=== PATIENT | male | born 1950 | race Asian ===

== ENCOUNTER 2024-01-01 02:11 | Emergency (ER) | payer MEDICARE, OTHER, SELFPAY ==
[2024-01-01 02:13] VITALS: BP 165/82
[2024-01-01 02:16] LABS: Glucose - Point of Care 135 mg/dl (70-99)
[2024-01-01 02:53] LABS: % Eosinophils 9.6 % (0-6); % Immature Granulocytes 0.5 % (0-0.5); % Lymphocytes 19.2 % (20.5-51.1); % Monocytes 11.8 % (1.7-9.3); % Neutrophils 57.9 % (42.2-75.2); Absolute Basophils 0.1 10^3/uL (0-0.2); Absolute Eosinophils 0.8 10^3/uL (0-0.7); Absolute Lymphocytes 1.5 10^3/uL (1.2-3.4); Absolute Monocytes 0.9 10^3/uL (0.1-0.6); Absolute Neutrophils 4.6 10^3/uL (1.4-6.5); Hematocrit 33.8 % (39.0-52.0); Mean Corp Hgb Conc. 35.5 g/dL (33.0-37.0); Mean Corpuscular Hgb 30.2 pg (27.0-31.0); Mean Corpuscular Volume 85.1 fL (80.0-94.0); Nucleated Red Blood Cells % 0 % (-); Red Blood Cell Count 3.97 10^6/uL (4.70-6.10); Red Cell Dist. Width 15.6 % (11.5-14.5)
[2024-01-01 03:32] VITALS: BMI 23.8
--- NOTE | 2024-01-01 03:56 | ED.GENMED ---
Addendum entered and electronically signed by Leonard Mckenzie DO 01/01/24 05:51:
Patient now remembers that he ran out of his Valium greater than 24 hours ago 2 mg which she takes at night
Requested a refill
Original Note:
History of Present Illness
General
Chief Complaint: Weakness
Source: patient
Exam Limitations: none
Time Seen by Provider: 01/01/24 03:49
Nursing documentation reviewed up to this point in time: agreed with
Travel History
Have you had any contact with someone who has COVID-19?: No
Do you have any symptoms of coronavirus? Fever > 100 degrees, chills, cough, shortness of breath, sore throat, loss of taste or smell, muscle aches, or headache?: No
History of Present Illness
History of Present Illness:
73-year-old male hypertension diabetes on metformin CAD with stents presents with a feeling of uneasiness around 11 AM, took his blood sugar was 92, drank some apple juice now feeling better no fever no nausea or vomiting no chest pain no shortness
of breath no abdominal pain he takes sodium supplements and potassium supplements he had a hip replacement
Past History
Past History
ED Past Medical History: CAD, HTN and NIDDM
ED Past Surgical History: Orthopedic
Social History
Tobacco: Non-smoker
Alcohol: None
Drug: None
Living: with family
Employment: Retired
Review of Systems
Review of Systems
All Other Systems: Not applicable
Constitutional: Reports fatigue
EENT: Reports no symptoms
Respiratory: Reports no symptoms
Cardiac: Reports no symptoms
ABD/GI: Reports no symptoms
: Reports no symptoms
Musculoskeletal: Reports no symptoms
Skin: Reports no symptoms
Neurological: Reports weakness
Endocrine: Reports no symptoms
Hematologic/Lymphatic: Reports no symptoms
Phy Exam
Physical Exam
Physical Exam:
Physical Exam
General: no apparent distress, not acutely ill
Neck: No jaundice
Heart: s1/s2 regular rate and rhythm, no murmur. equal radial pulses.
Lungs: no acute respiratory distress. clear bilaterally
Abdomen: Not tender
Neuro: alert and oriented. no focal neurological deficits clear clear speech
Skin: no rash
Psychiatric: well kept. interactive and cooperative
Extremities: Trace edema no calf pain
Course
Orders/Labs/Results
Orders:
Orders
01/01/24 02:17
Accucheck Once [Bedside Glucose Monitoring-ONCE] As Directed
01/01/24 02:33
Complete Blood Count/With Diff Urgent
01/01/24 03:29
Comprehensive Metabolic Panel Urgent
Comment: REDRAW
01/01/24 03:54
Electrocardiogram (*1) Urgent
Reason for Study: QTc Monitoring
EKG- Treatment ONCE
01/01/24 04:00
Troponin I Urgent
Abnormal Lab Results
01/01/24 01/01/24 01/01/24
02:15 02:33 03:29
RBC 3.97 L 10^6/uL
(4.70-6.10)
Hgb 12.0 L g/dL
(13.0-18.0)
Hct 33.8 L %
(39.0-52.0)
RDW 15.6 H %
(11.5-14.5)
MPV 11.0 H fL
(7.4-10.4)
Absolute Monos (auto) 0.9 H 10^3/uL
(0.1-0.6)
Absolute Eos (auto) 0.8 H 10^3/uL
(0-0.7)
Lymphocytes % 19.2 L %
(20.5-51.1)
Monocytes % 11.8 H %
(1.7-9.3)
Eosinophils % 9.6 H %
(0-6)
Sodium 134 L mmol/L
(135-145)
BUN 21 H mg/dl
(9-20)
Glucose 151 H mg/dl
(70-99)
POC Glucose 135 H mg/dl
(70-99)
01/01/24 02:33
01/01/24 03:29
Vital Signs
Initial and Last Documented VS:
Initial Vital Signs
Temp Pulse Resp BP Pulse Ox
97.8 F 64 22 165/82 98
01/01/24 02:13 01/01/24 02:13 01/01/24 02:13 01/01/24 02:13 01/01/24 02:13
Last Documented Vital Signs
Temp Pulse Resp BP Pulse Ox
97.8 F 55 20 148/73 98
01/01/24 02:13 01/01/24 04:15 01/01/24 04:15 01/01/24 04:00 01/01/24 04:15
MDM/Problems Addressed
Differential Diagnosis Includes:
Arrhythmia hypoglycemia seems less likely infection electrolyte abnormality
MDM/Problems Addressed:
Feeling unwell
Chronic conditions affecting care: DM, HTN and CAD
Acute Exacerbation and/or Progression of Chronic Illness: DM, HTN and CAD
*Pulse Oximetry
Patient hypoxic: no
*EKG
Interpreted by ED Provider?: Yes
Interpretation: normal
Comparison EKG: no comparison EKG present
Heart Rate: 78
Rate: normal
Rhythm: sinus
Ischemia: no ischemia
*Mate Relief Interpretation
Rate: normal
Interpretation: normal
Heart Rate: 78
Rhythm: sinus
*Critical Care Note
Total Time (30-74mins, 75-104mins- exclusive of procedures): Not Applicable
Update Note
Update Note:
Will check electrolytes EKG and troponin
5:12 AM labs troponin EKG noted patient appears well
ED Attending Note
-
Portions of this chart may have been created with voice recognition software.� Occasional wrong word or��sound alike� substitutions may have occurred due to the inherent limitations of voice recognition software.
Discharge Plan
Departure
Patient Disposition: Home (Routine Discharge)
Date of Disposition: 01/01/24
Time of Disposition: 05:12
Patient with high blood pressure during this ER visit?: No
Condition: Good
Discharge Problem:
Weakness
Instructions: Generalized Weakness (DC)
Referrals:
PRIVATE,PHYSICIAN [Family Provider] -
Interventions
Interventions:
*Risk Screen - Suicide Last Done: 01/01/24 02:13
*Neglect/Abuse Screening Last Done: 01/01/24 02:37
ED- Cardiac Assessment Last Done: 01/01/24 04:30
ED- Neurological Assessment Last Done: 01/01/24 04:30
ED- Pulmonary Assessment Last Done: 01/01/24 04:30
Discharge Date and Time
Print Language: GABONESE
[2024-01-01 04:00] VITALS: BP 148/73
[2024-01-01 04:17] LABS: Platelet Count 181 10^3/uL (130-400)
[2024-01-01 04:24] LABS: ALT (SGPT) 20 U/L (0-50); AST (SGOT) 24 U/L (17-59); Albumin 4.2 g/dl (3.5-5.0); Alkaline Phosphatase 73 U/L (38-126); Blood Urea Nitrogen 21 mg/dl (9-20); Calcium 9.4 mg/dl (8.4-10.2); Carbon Dioxide 24 mmol/L (22-30); Chloride 101 mmol/L (98-107); Estimated Creatinine Clearance 73 ml/min; Glucose 151 mg/dl (70-99); Potassium 4.4 mmol/L (3.5-5.1); Sodium 134 mmol/L (135-145); eGFR > 60.00
[2024-01-01 04:51] LABS: Troponin I < 0.012 ng/ml
[2024-01-01 05:00] VITALS: BP 147/65
== END 2024-01-01 06:58 | disposition home or self-care (01) ==
LOC: EMR 02:11
PROVIDERS: EMERGENCY PHYSICIAN Emergency Medicine
DX: R53.1 Weakness (principal); E11.9 Type 2 diabetes mellitus without complications; I25.10 Atherosclerotic heart disease of native coronary artery without angina pectoris; I10 Essential (primary) hypertension; Z95.5 Presence of coronary angioplasty implant and graft
CPT/HCPCS: 99283; 80053; 82962; 84484; 85025; 93005